=== PATIENT | female | born 1960 | race Caucasian/White ===

== ENCOUNTER 2018-07-22 11:25 | Emergency (ER) | payer SELFPAY ==
[2018-07-22 12:19] LABS: #Basophils 0.1 thou/uL (0.0-0.2); #Eosinphils 0.1 thou/uL (0.0-0.7); #Lymphocytes 1.4 thou/uL (1.20-3.40); #Monocytes 0.6 thou/uL (0.11-0.59); %Basophils 0.8 % (0.0-1.0); %Eosinophils 0.4 % (0.0-10.0); %Lymphocytes 12.5 % (21.0-51.0); %Monocytes 5.6 % (0.0-10.0); %Neutrophils 80.7 % (42.0-75.0); Hemoglobin 14.9 g/dL (12.0-16.0); Mean Corpuscular HGB CONC 32.7 g/dL (32.0-36.0); Mean Corpuscular Hemoglobin 29.7 pg (27.0-31.0); Mean Corpuscular Volume 91.1 fL (78.0-98.0); Mean Platelet Volume 9.4 fL (7.4-10.4); Platelet Count 243 thou/uL (130-400); RBC Distribution Width 11.2 % (11.5-14.5); White Blood Cell (WBC) Count 11.1 thou/uL (4.8-10.8)
--- NOTE | 2018-07-22 12:21 | RAD ---
2 VIEWS CHEST: Date: 07/22/18 PROVIDED CLINICAL HISTORY: Cough. FINDINGS: Comparison with 11/17/14. Cardiac and mediastinal silhouette is unchanged in appearance. No focal consolidation, pleural fluid, or pneumothorax apparent. IMPRESSION: No evidence for an acute cardiopulmonary process. POS: [facility]
[2018-07-22 12:31] LABS: ALT (SGPT) 19 U/L (8-55); AST (SGOT) 17 U/L (5-34); Albumin 4.2 g/dL (3.5-5.0); Alkaline Phosphatase 94 U/L (40-150); Anion Gap 16 mmol/L (10-20); BUN (Urea Nitrogen) 8 mg/dL (9.8-20.1); Bilirubin, Total 0.9 mg/dL (0.2-1.2); Calc. Creatinine Clearance 0 mL/min (70-130); Calcium 9.5 mg/dL (7.8-10.44); Carbon Dioxide 24 mmol/L (22-29); Chloride 104 mmol/L (98-107); Estimated GFR-MDRD 75; Globulin 3.4 g/dL (2.4-3.5); Glucose 126 mg/dL (70-105); Potassium 3.7 mmol/L (3.5-5.1); Protein, Total 7.6 g/dL (6.0-8.3); Sodium 140 mmol/L (136-145)
[2018-07-22] MEDS ORDERED: predniSONE 20 MG TAB ONE (12:37)
[2018-07-22] MEDS ORDERED: Azithromycin 250 MG TAB ONE (12:37)
== END 2018-07-22 12:50 | disposition home or self-care (01) ==
LOC: NAV ERS 11:25
DX: R50.9 Fever, unspecified (principal); R05 Cough; F17.210 Nicotine dependence, cigarettes, uncomplicated
CPT/HCPCS: 71046; 80053; 83605; 85025; 94640; 99406; J7506; J7620

== ENCOUNTER 2019-03-25 19:43 | Emergency (ER) | payer SELFPAY ==
[2019-03-25] MEDS ORDERED: Fluorescein Opthalmic Strip ONE (20:21)
[2019-03-25] MEDS ORDERED: Proparacaine 0.5% Opth 15 ML BOT ONE (20:21)
== END 2019-03-25 21:30 | disposition home or self-care (01) ==
LOC: NAV ERS 19:43
DX: H11.31 Conjunctival hemorrhage, right eye (principal); H10.9 Unspecified conjunctivitis; F17.210 Nicotine dependence, cigarettes, uncomplicated
CPT/HCPCS: 99283

== ENCOUNTER 2022-07-10 20:41 | Emergency (ER) | payer SELFPAY ==
[2022-07-10] MEDS ORDERED: Dexamethasone 4 MG TAB ONE (22:19)
[2022-07-10] MEDS ORDERED: Lidocaine 5% Patch TD SCH (22:30)
[2022-07-10] MEDS ORDERED: Sodium Chloride 0.9% 100 ML ONE (23:02)
[2022-07-10] MEDS ORDERED: Sodium Chloride 0.9% 1,000 ML ONE (23:02)
[2022-07-10] MEDS ORDERED: cefTRIAXone\\ROCEPHIN 2 GM VIAL ONE (23:02)
[2022-07-10 23:12] LABS: Hemoglobin 14.8 g/dL (12.0-16.0); Mean Corpuscular HGB CONC 33.2 g/dL (32.0-36.0); Mean Corpuscular Hemoglobin 31.4 pg (27.0-31.0); Mean Corpuscular Volume 94.6 fL (78.0-98.0); Mean Platelet Volume 9.8 fL (7.4-10.4); Platelet Count 240 thou/uL (130-400); RBC Distribution Width 11.7 % (11.5-14.5); Red Blood Cell (RBC) Count 4.71 mill/uL (4.20-5.40); White Blood Cell (WBC) Count 8.4 thou/uL (4.8-10.8)
[2022-07-10 23:23] LABS: ALT (SGPT) 16 U/L (8-55); AST (SGOT) 12 U/L (5-34); Albumin 4.1 g/dL (3.4-4.8); Alkaline Phosphatase 84 U/L (40-110); Anion Gap 17 mmol/L (10-20); BUN (Urea Nitrogen) 13 mg/dL (9.8-20.1); Bilirubin, Total 0.6 mg/dL (0.2-1.2); Calc. Creatinine Clearance 0 mL/min (70-130); Calcium 8.8 mg/dL (7.8-10.44); Carbon Dioxide 22 mmol/L (23-31); Chloride 108 mmol/L (98-107); Estimated GFR 82; Globulin 3.2 g/dL (2.4-3.5); Glucose 136 mg/dL (80-115); Potassium 3.9 mmol/L (3.5-5.1); Protein, Total 7.3 g/dL (5.8-8.1); Sodium 143 mmol/L (136-145)
[2022-07-10 23:27] LABS: MDiff Complete? YES
[2022-07-10 23:28] LABS: Band 5 % (5-11); Lymphocytes 11 % (21-51); Neutrophil 75 % (42-75)
[2022-07-10 23:29] LABS: Eosinophils 1 % (0-10); Monocytes 8 % (0-10)
[2022-07-11] MEDS ORDERED: Transdermal Patch Removal TOP SCH (10:30)
== END 2022-07-11 00:30 | disposition home or self-care (01) ==
LOC: NAV ERS 20:41
DX: J18.9 Pneumonia, unspecified organism (principal); J44.9 Chronic obstructive pulmonary disease, unspecified; K11.8 Other diseases of salivary glands; I10 Essential (primary) hypertension; F17.210 Nicotine dependence, cigarettes, uncomplicated
CPT/HCPCS: 71250; 80053; 83605; 85025; 87040; 96374; J0696; J3490; J7050; J8540

== ENCOUNTER 2023-02-14 00:42 | Emergency (ER) | payer OTHER ==
[2023-02-14 01:41] LABS: ALT (SGPT) 18 U/L (8-55); AST (SGOT) 23 U/L (5-34); Albumin 3.7 g/dL (3.4-4.8); Alkaline Phosphatase 80 U/L (40-110); Anion Gap 18 mmol/L (10-20); BUN (Urea Nitrogen) 8 mg/dL (9.8-20.1); Bilirubin, Total 0.9 mg/dL (0.2-1.2); Calc. Creatinine Clearance 0 mL/min (70-130); Calcium 8.9 mg/dL (7.8-10.44); Carbon Dioxide 23 mmol/L (23-31); Chloride 105 mmol/L (98-107); Estimated GFR 93; Globulin 2.9 g/dL (2.4-3.5); Glucose 154 mg/dL (80-115); Potassium 3.2 mmol/L (3.5-5.1); Protein, Total 6.6 g/dL (5.8-8.1); Sodium 143 mmol/L (136-145)
[2023-02-14 01:53] LABS: Eosinophils 1 % (0-10); Lymphocytes 17 % (21-51); MDiff Complete? YES; Mean Corpuscular HGB CONC 33.2 g/dL (32.0-36.0); Mean Corpuscular Hemoglobin 30.1 pg (27.0-31.0); Mean Corpuscular Volume 90.7 fl (78.0-98.0); Mean Platelet Volume 7.9 fL (7.4-10.4); Monocytes 35 % (0-10); Neutrophil 24 % (42-75); Platelet Count 39 10x3/uL (130-400); Reactive Lymphocytes 23 % (0-10); White Blood Cell (WBC) Count 0.5 10x3/uL (4.8-10.8)
[2023-02-14] MEDS ORDERED: Sodium Chloride 0.9% 1,000 ML ONE ×2 (02:32→04:00)
[2023-02-14 03:52] LABS: Bacteria/HPF 1+ HPF (None Seen); Bilirubin Negative (Negative); Blood, Urine Negative (Negative); Clarity Clear (Clear); Glucose, Urine (Dipstick) Negative (Negative); Ketone, Urine Negative (Negative); Leukocyte Trace (Negative); Nitrite Positive (Negative); Protein, Urine (Dipstick) Negative (Neg-Trace); RBC/HPF None Seen HPF (0-3); Urobilinogen 0.2 mg/dL (Less than 2); WBC/HPF 0-3 HPF (0-3)
[2023-02-14 03:53] LABS: Squamous Epithelial None Seen HPF (0-3)
[2023-02-14 04:31] LABS: SARS-CoV-2 NAA Rapid Test Not Detected (NotDetected)
[2023-02-14] MEDS ORDERED: cefTRIAXone (ROCEPHIN) 1 GM VIAL ONE (04:31)
[2023-02-14] MEDS ORDERED: Sodium Chloride 0.9% 100 ML ONE (04:31)
== END 2023-02-14 07:22 | disposition short-term general hospital (02) ==
LOC: NAV ERS 00:42
DX: D70.9 Neutropenia, unspecified (principal); R00.0 Tachycardia, unspecified; D69.6 Thrombocytopenia, unspecified; I10 Essential (primary) hypertension; F17.210 Nicotine dependence, cigarettes, uncomplicated; Z20.822 Contact with and (suspected) exposure to COVID-19
CPT/HCPCS: 71046; 80053; 81003; 81015; 83605; 83880; 84484; 85025; 93005; 96365; J0696; J7050

== ENCOUNTER 2024-05-31 21:58 | Emergency (ER) | payer SELFPAY ==
[2024-05-31 22:31] LABS: #Eosinphils 0.1 thou/uL (0.0-0.7); #Monocytes 0.4 thou/uL (0.11-0.59); #Neutrophils 5.7 thou/uL (1.40-6.50); %Basophils 0.4 % (0.0-1.0); %Eosinophils 0.9 % (0.0-10.0); %Lymphocytes 13.9 % (21.0-51.0); %Monocytes 5.1 % (0.0-10.0); %Neutrophils 79.7 % (42.0-75.0); Hematocrit 40.3 % (36.0-47.0); Hemoglobin 13.4 g/dL (12.0-16.0); Mean Corpuscular HGB CONC 33.3 g/dL (32.0-36.0); Mean Corpuscular Hemoglobin 29.6 pg (27.0-31.0); Mean Corpuscular Volume 88.9 fl (78.0-98.0); Mean Platelet Volume 7.1 fL (7.4-10.4); Platelet Count 204 10x3/uL (130-400); RBC Distribution Width 11.4 % (11.5-14.5); Red Blood Cell (RBC) Count 4.54 mill/uL (4.20-5.40); White Blood Cell (WBC) Count 7.1 10x3/uL (4.8-10.8)
[2024-05-31] MEDS ORDERED: Sodium Chloride 0.9% 1,000 ML ONE (22:38)
[2024-05-31] MEDS ORDERED: Ipratropium/Albuterol 3 ML NEB ONE (22:38)
[2024-05-31] MEDS ORDERED: methylPREDNISolone Sod Succ/PF 125 MG/2 ML VIAL ONE (22:38)
[2024-05-31 22:46] LABS: ALT (SGPT) 8 U/L (8-55); AST (SGOT) 13 U/L (5-34); Albumin 3.5 g/dL (3.4-4.8); Alkaline Phosphatase 85 U/L (40-110); Anion Gap 17 mmol/L (10-20); BUN (Urea Nitrogen) 12 mg/dL (9.8-20.1); Bilirubin, Total 0.5 mg/dL (0.2-1.2); Calc. Creatinine Clearance 0 mL/min (70-130); Calcium 9.6 mg/dL (7.8-10.44); Carbon Dioxide 22 mmol/L (23-31); Chloride 106 mmol/L (98-107); Estimated GFR 82; Globulin 3.6 g/dL (2.4-3.5); Glucose 129 mg/dL (80-115); Potassium 4.2 mmol/L (3.5-5.1); Protein, Total 7.1 g/dL (5.8-8.1); Sodium 141 mmol/L (136-145); Troponin I Less than 0.010 ng/mL (< 0.028)
[2024-06-01 20:33] LABS: SARS-CoV-2 N1 Negative; SARS-CoV-2 N2 Negative; SARS-CoV-2 RNAse P1 Positive; SARS-CoV-2 RNAse P2 Positive
== END 2024-05-31 23:48 | disposition home or self-care (01) ==
LOC: NAV ERS 21:58
DX: J10.1 Influenza due to other identified influenza virus with other respiratory manifestations (principal); J44.1 Chronic obstructive pulmonary disease with (acute) exacerbation; R03.0 Elevated blood-pressure reading, without diagnosis of hypertension; I10 Essential (primary) hypertension; F17.210 Nicotine dependence, cigarettes, uncomplicated
CPT/HCPCS: 71045; 80053; 83605; 83880; 84484; 85025; 87070; 87205; 87635; 87804; 93005; 94640; 96374; J2919; J7030; J7620